=== PATIENT | male | born 1965 | race Caucasian/White ===

== ENCOUNTER → 2017-02-26 | Outpatient (REF) | payer OTHER ==
[~2017-02-26] MED LIST: ASPI1TAB PO; ASPI324T PO; ATOR80TA59 PO; COLA100C5 PO; CORE12.5 PO; LISI10TA4 PO; LORT5TAB PO; NITR3TA SL; NORV5TAB PO; PLAV1TAB2 PO; TYLE325T5 PO; flomax PO
[2017-02-26 12:34] LABS: BASO % 0.5 % (0.0-1.0); EOS # 0.2 10^3/uL (0.0-0.50); EOS % 3.3 % (0.0-3.0); IMMATURE GRANULOCYTE % 0.2 % (0-0); LYMPH # 1.1 10^3/uL (1.5-4.5); LYMPH % 18.6 % (24.0-44.0); MEAN CORPUSCULAR HEMOGLOBIN 27.5 pg (27.0-33.0); MEAN CORPUSCULAR HGB CONC 32.1 g/dl (32.0-36.5); MEAN CORPUSCULAR VOLUME 85.6 fl (80.0-96.0); MONO # 0.6 10^3/uL (0.0-0.8); MONO % 9.7 % (0.0-5.0); NEUTROPHILS # 3.9 10^3/uL (1.8-7.7); NEUTROPHILS % 67.7 % (36.0-66.0); PLATELET COUNT, AUTOMATED 276 10^3/uL (150-450); RED CELL DISTRIBUTION WIDTH 16.2 % (11.5-14.5); WHITE BLOOD COUNT 5.8 10^3/uL (4.0-10.0)
[2017-02-26 12:43] LABS: ALBUMIN 3.8 GM/DL (3.2-5.2); ALBUMIN/GLOBULIN RATIO 1.36 (1.00-1.93); ALKALINE PHOSPHATASE 109 U/L (45-117); ALT/SGPT 30 U/L (12-78); ANION GAP 7 MEQ/L (8-16); AST/SGOT 20 U/L (15-37); BILIRUBIN,TOTAL 0.4 MG/DL (0.2-1.0); BLOOD UREA NITROGEN 14 MG/DL (7-18); CALCIUM LEVEL 8.1 MG/DL (8.5-10.1); CARBON DIOXIDE LEVEL 25 MEQ/L (21-32); CHLORIDE LEVEL 107 MEQ/L (98-107); CHOLESTEROL LEVEL 92 MG/DL (<200); GLOMERULAR FILTRATION RATE > 60.0 (>56); GLUCOSE, FASTING 100 MG/DL (70-105); POTASSIUM SERUM 4.7 MEQ/L (3.5-5.1); SODIUM LEVEL 139 MEQ/L (136-145); TOTAL PROTEIN 6.6 GM/DL (6.4-8.2); TRIGLYCERIDES LEVEL 126 MG/DL (<150)
== END ==
LOC: M LABDRAW1 09:34
PROVIDERS: ATTEND Emergency Medicine
DX: E78.2 Mixed hyperlipidemia (principal); I10 Essential (primary) hypertension; E55.9 Vitamin D deficiency, unspecified

== ENCOUNTER → 2017-04-24 | Outpatient (REF) | payer OTHER | LOC: M LAB REF 18:07 | PROVIDERS: ATTEND Surgery | DX: D17.21 Benign lipomatous neoplasm of skin and subcutaneous tissue of right arm (principal) ==

== ENCOUNTER → 2018-02-26 | Outpatient (REF) | payer OTHER ==
[2018-02-26 12:46] LABS: BASO % 0.5 % (0.0-1.0); EOS # 0.3 10^3/uL (0.0-0.50); EOS % 3.7 % (0.0-3.0); HEMATOCRIT 43.2 % (42.0-52.0); HEMOGLOBIN 14.3 g/dl (13.5-17.5); IMMATURE GRANULOCYTE % 0.4 % (0-3.0); LYMPH # 1.2 10^3/uL (1.5-4.5); LYMPH % 16.4 % (24.0-44.0); MEAN CORPUSCULAR HEMOGLOBIN 31.1 pg (27.0-33.0); MEAN CORPUSCULAR HGB CONC 33.1 g/dl (32.0-36.5); MEAN CORPUSCULAR VOLUME 93.9 fl (80.0-96.0); MONO # 0.6 10^3/uL (0.0-0.8); MONO % 7.4 % (0.0-5.0); NEUTROPHILS # 5.3 10^3/uL (1.8-7.7); NEUTROPHILS % 71.6 % (36.0-66.0); PLATELET COUNT, AUTOMATED 247 10^3/uL (150-450); RED CELL DISTRIBUTION WIDTH 13.5 % (11.5-14.5); WHITE BLOOD COUNT 7.4 10^3/uL (4.0-10.0)
[2018-02-26 13:00] LABS: ALBUMIN 3.7 GM/DL (3.2-5.2); ALBUMIN/GLOBULIN RATIO 1.32 (1.00-1.93); ALKALINE PHOSPHATASE 112 U/L (45-117); ALT/SGPT 37 U/L (12-78); ANION GAP 7 MEQ/L (8-16); AST/SGOT 16 U/L (7-37); BILIRUBIN,TOTAL 0.4 MG/DL (0.2-1.0); BLOOD UREA NITROGEN 13 MG/DL (7-18); CALCIUM LEVEL 8.1 MG/DL (8.5-10.1); CARBON DIOXIDE LEVEL 27 MEQ/L (21-32); CHLORIDE LEVEL 109 MEQ/L (98-107); CHOLESTEROL LEVEL 106 MG/DL (<200); CHOLESTEROL RISK RATIO 3.533 (<5); CREATININE FOR GFR 0.86 MG/DL (0.70-1.30); GLOMERULAR FILTRATION RATE > 60.0 (>56); GLUCOSE, FASTING 99 MG/DL (70-100); HDL CHOLESTEROL 30 MG/DL (>40); LDL CHOLESTEROL 54 MG/DL (<100); NON-HDL-C 76 MG/DL; POTASSIUM SERUM 4.2 MEQ/L (3.5-5.1); SODIUM LEVEL 143 MEQ/L (136-145); TOTAL PROTEIN 6.5 GM/DL (6.4-8.2); TRIGLYCERIDES LEVEL 109 MG/DL (<150)
[2018-02-26 13:05] LABS: TOTAL 25(OH) VITAMIN D 40.2 NG/ML (30.0-100.0)
== END ==
LOC: M LABDRAW1 11:42
DX: I10 Essential (primary) hypertension (principal); E78.2 Mixed hyperlipidemia; E55.9 Vitamin D deficiency, unspecified

== ENCOUNTER → 2018-06-12 | Outpatient (CLI) | payer OTHER ==
[~2018-06-12] MED LIST changes: +NITR0.3S SL; -NITR3TA SL
--- NOTE | 2018-06-12 10:01 | REP ---
Clinical: Lower back pain . Technique: AP, lateral, bilateral oblique, and coned-down views. Findings: Alignment and lordosis is maintained. Mild multilevel degenerative changes include endplate sclerosis with marginal spurring/early osteophyte formation. Hypertrophic facet changes at L5-S1 also appreciated. There is no evidence for acute fracture / compression injury or subluxation. No obvious spondylolysis or spondylolisthesis. Alignment and lordosis maintained. Impression: Mild/early moderate multilevel degenerative changes. Electronically Signed by Sid Raymond MD 06/12/2018 09:52 A
== END ==
LOC: M RAD 09:24
PROVIDERS: ATTEND Family Medicine
DX: M54.5 Low back pain (principal)

== ENCOUNTER 2018-07-17 07:03 | Day surgery (SDC) | payer OTHER ==
[~2018-07-17] VITALS: Ht 160 cm; Wt 78.0 kg
[~2018-07-17 07:03] MED LIST changes: +DRIS50003 PO; +LISI-538 PO; +NS 1,000 ML IV ONE
[2018-07-17] MEDS ORDERED: LIDOCAINE 2% INJ 100 MG/5 ML SDV (FOR ANES.) As Ordered ONE (07:20)
[2018-07-17] MEDS ORDERED: PROPOFOL 200 MG/20 ML VIAL As Ordered ONE ×2 (07:20→08:18)
--- NOTE | 2018-07-17 08:21 | ROOR ---
Patient Name: Vinod Andres Procedure Date: 07/17/2018 8:01 AM Date of : 1965 Age: 53 Room: [facility] Gender: Male Note Status: Finalized Procedure: Colonoscopy Indications: Screening for colorectal malignant neoplasm Providers: DO Simon Loaiza MD: Brenda Christianson MD Requesting Provider: Medicines: Propofol per Anesthesia Complications: No immediate complications. Procedure: Pre-Anesthesia Assessment: - Prior to the procedure, a History and Physical was performed, and patient medications and allergies were reviewed. The patient is competent. The risks and benefits of the procedure and the sedation options and risks were discussed with the patient. All questions were answered and informed consent was obtained. Patient identification and proposed procedure were verified by the physician, the nurse and the dental service technician in the endoscopy suite. Mental Status Examination: normal. Airway Examination: normal oropharyngeal airway and neck mobility. Respiratory Examination: clear to auscultation. CV Examination: normal. Prophylactic Antibiotics: The patient does not require prophylactic antibiotics. Prior Anticoagulants: The patient has taken no previous anticoagulant or antiplatelet agents. ASA Grade Assessment: II - A patient with mild systemic disease. After reviewing the risks and benefits, the patient was deemed in satisfactory condition to undergo the procedure. The anesthesia plan was to use monitored anesthesia care (MAC). Immediately prior to administration of medications, the patient was re-assessed for adequacy to receive sedatives. The heart rate, respiratory rate, oxygen saturations, blood pressure, adequacy of pulmonary ventilation, and response to care were monitored throughout the procedure. The physical status of the patient was re-assessed after the procedure. The Colonoscope was introduced through the anus and advanced to the cecum, identified by appendiceal orifice and ileocecal valve. The colonoscopy was performed without difficulty. The patient tolerated the procedure well. Findings: The perianal exam findings include non-thrombosed internal hemorrhoids and internal hemorrhoids (Grade I). The exam was otherwise without abnormality on direct and retroflexion views. Impression: - Non-thrombosed internal hemorrhoids and internal hemorrhoids (Grade I) found on perianal exam. - The examination was otherwise normal on direct and retroflexion views. - No specimens collected. Recommendation: - Patient has a contact number available for emergencies. The signs and symptoms of potential delayed complications were discussed with the patient. Return to normal activities tomorrow. Written discharge instructions were provided to the patient. - Repeat colonoscopy in 5-10 years for screening purposes. - Return to my office PRN. Davian Suarez DO 07/17/2018 8:20:51 AM This report has been signed electronically. Number of Addenda: 0 Note Initiated On: 07/17/2018 8:01 AM Estimated Blood Loss: Estimated blood loss: none.
[2018-07-17 08:50] VITALS: BP 122/69
== END 2018-07-17 08:52 | disposition home or self-care (01) ==
LOC: M OPP 07:03
PROVIDERS: ATTEND Surgery
DX: K64.0 First degree hemorrhoids (principal); Z12.11 Encounter for screening for malignant neoplasm of colon

== ENCOUNTER 2019-08-13 16:42 | Inpatient (IN) | payer OTHER ==
[~2019-08-13] VITALS: Ht 160 cm; Wt 84.5 kg
[~2019-08-13 16:42] MED LIST changes: -ASPI1TAB PO; +ASPI81TA26 PO; -NS 1,000 ML IV ONE
[2019-08-13 17:17] LABS: BASO # 0.1 10^3/uL (0.0-0.2); BASO % 0.3 % (0.0-1.0); EOS # 0.2 10^3/uL (0.0-0.5); EOS % 1.3 % (0.0-3.0); HEMATOCRIT 49.4 % (42.0-52.0); HEMOGLOBIN 16.6 g/dl (13.5-17.5); LYMPH # 0.5 10^3/uL (1.5-5.0); LYMPH % 3.5 % (24.0-44.0); MEAN CORPUSCULAR HEMOGLOBIN 32.1 pg (27.0-33.0); MEAN CORPUSCULAR HGB CONC 33.6 g/dl (32.0-36.5); MEAN CORPUSCULAR VOLUME 95.6 fl (80.0-96.0); MONO # 0.6 10^3/uL (0.0-0.8); NEUTROPHILS # 13.7 10^3/uL (1.5-8.5); NEUTROPHILS % 90.2 % (36.0-66.0); PLATELET COUNT, AUTOMATED 258 10^3/uL (150-450); RED BLOOD COUNT 5.17 10^6/uL (4.30-6.10); WHITE BLOOD COUNT 15.2 10^3/uL (4.0-10.0)
[2019-08-13 17:29] LABS: INR 1.03; PROTHROMBIN TIME 13.2 SECONDS (11.8-14.0)
[2019-08-13 17:30] LABS: PARTIAL THROMBOPLASTIN TIME 24.9 SECONDS (25.0-38.4)
[2019-08-13 17:51] LABS: ALBUMIN 4.6 GM/DL (3.2-5.2); ALT/SGPT 65 U/L (12-78); BILIRUBIN,DIRECT 0.2 MG/DL (0.0-0.2); BILIRUBIN,TOTAL 0.7 MG/DL (0.2-1.0); BLOOD UREA NITROGEN 18 MG/DL (7-18); CALCIUM LEVEL 9.5 MG/DL (8.5-10.1); CARBON DIOXIDE LEVEL 26 MEQ/L (21-32); CHLORIDE LEVEL 105 MEQ/L (98-107); CK-MB VALUE MASS 2.1 NG/ML (<3.6); CPK CREATINE PHOSPHOKINASE 177 U/L (39-308); CREATININE FOR GFR 1.45 MG/DL (0.70-1.30); GLOMERULAR FILTRATION RATE 54.2 (>56); GLUCOSE, FASTING 131 MG/DL (70-100); LIPASE 119 U/L (73-393); MB/CK RELATIVE INDEX 1.19 (< OR =4); POTASSIUM SERUM 6.1 MEQ/L (3.5-5.1); SODIUM LEVEL 135 MEQ/L (136-145); TOTAL PROTEIN 7.7 GM/DL (6.4-8.2); TROPONIN I < 0.02 NG/ML (< 0.10)
[2019-08-13] MEDS ORDERED: DEXTROSE 50% 50 ML SYRINGE IV STA (18:12)
[2019-08-13] MEDS ORDERED: NS 1,000 ML IV SCH (18:12)
[2019-08-13] MEDS ORDERED: SOD POLYSTYRENE SULFONATE SUSP 15 GM/60 ML UD PO ONE (18:15)
[2019-08-13] MEDS ORDERED: HumuLIN R (REGULAR) INSULIN (NovoLIN R) **100U/ML** PER UNIT IV ONE (18:15)
[2019-08-13] MEDS ORDERED: VITA50005 PO (18:42)
--- NOTE | 2019-08-13 18:54 | REP ---
HISTORY: Chest pain. FINDINGS: The superior mediastinal structures are midline. The cardiac silhouette is unremarkable in size, shape and position. The diaphragmatic surfaces of the lungs are regular and the costophrenic angles are clear. The pulmonary jimenez are clear. The imaged osseous structures are intact. IMPRESSION: There is no acute cardiopulmonary disease. Electronically Signed by Jamey Mcghee DO 08/13/2019 07:34 P
[2019-08-13] MEDS ORDERED: ACETAMINOPHEN TAB 650MG DOSE (2X325MG) PO PRN (19:30)
--- NOTE | 2019-08-13 19:44 | ECGEPIP ---
[facility] - ED Test Date: 2019-08-13 Pat Name: BLESSING LAI Department: Room: - Gender: Male Hat Former: : 1965 Requested By: VIJI Poe Order Number: [id number] Reading MD: Shruthi Garcia Measurements Intervals [place] Rate: 77 P: 23 OK: 159 QRS: 2 QRSD: 84 T: 12 QT: 323 QTc: 367 Interpretive Statements SINUS RHYTHM INDETERMINATE AXIS ANTERIOR MYOCARDIAL INFARCTION, OF INDETERMINATE AGE INFERIOR MYOCARDIAL INFARCTION, OF INDETERMINATE AGE CLINICAL CORRELATION NO PRIOR Electronically Signed on 08-13-2019 19:43:55 EDT by Shruthi Garcia
[2019-08-13] MEDS ORDERED: NITROGLYCERIN 0.3 MG SUBL TAB SL PRN (20:00)
--- NOTE | 2019-08-13 20:17 | HPEPDOC ---
General Date of Admission Aug 13, 2019 at 19:19 Date of Service: Aug 13, 2019 Chief Complaint The patient is a 54-year-old male Who presented to the hospital with complaints of nausea, vomiting and diarrhea History of Present Illness Patient is a 54-year-old male with a PMHx of CAD (s/p MS x 2) s/p stent x 6 (02/2014) and Nephrolithiasis who presented to the ER with complaints of nausea / vomiting / diarrhea that started this afternoon. Patient reported at 1 PM today after lunch he began to experience persistent vomiting, mostly of the food that he had eaten without any evidence of blood. Reported 4-5 episodes of vomiting. Patient also had associated diarrhea that he described as watery noted at least 5-6 bowel movements. . She denied any abdominal discomfort. Denies any recent fevers or chills. Patient does report history of food poisoning in 1999. . Of note, patient does report that his has a history of C. difficile colitis in March 2019 and she had received a fecal transit with Dr. Kumar. At this moment. Patient denies any chest pain, shortness of breath, cough, palpitations, or urinary discomfort. Patient reports prior to all this, his appetite was fairly normal and his weight consistent between 166 and 172. Home Medications Scheduled Aspirin (Aspirin EC) 81 Mg Tab, 81 MG PO DAILY, (Reported) Atorvastatin Calcium (Atorvastatin Calcium) 80 Mg Tab, 80 MG PO QHS, (Reported) Carvedilol (Coreg) 12.5 Mg Tab, 12.5 MG PO BID, (Reported) Clopidogrel Bisulfate (Plavix) 75 Mg Tab, 75 MG PO DAILY, (Reported) Ergocalciferol (Vitamin D2) (Vitamin D2) 50,000 Units Cap, 50,000 UNIT PO QM ONTH, (Reported) Lisinopril (Lisinopril) 20 Mg Tab, 20 MG PO DAILY, (Reported) Scheduled PRN Nitroglycerin (Nitrostat) 0.3 Mg Subl, 0.3 MG SL NITRO PRN for CHEST PAIN, (Reported) Allergies Coded Allergies: oxycodone (Verified Allergy, Unknown, NON-SPECIFIC PERCOCET ALLERGY REPORTED, 08/13/19) Past Medical History Medical History CAD (s/p MS x 2) s/p stent x 6 (02/2014) and Nephrolithiasis Surgical History Right wrist surgery Lithotripsy Right arm abscess incision and drainage Family History - Mother with a history of MS - Father with a history of DM and kidney stones Social History - Denies the use of alcohol or illicit drugs; patient was that he quit smoking in 2004, but was a smoker of 20 years at less than one PPD - Denies recent travel or sick contacts - Lives with - Occupation; patient reports that he used to work in the [employer] now. He works at [employer] in the [employer] Review of Systems Other systems 10 point review of systems complete, all negative otherwise stated in HPI Vital Signs - Vitals: BP 119/67, HR 80, RR 15, Sat 96%RA, Temp 97.0F - General: Lying in bed and appears to be resting comfortably, Speaking in full sentences, AAOx3 - HEENT: NC, AT, PERRLA, EOMI - CVS: RRR, +S1S2 - Lungs: Fair air entry bilaterally, No appreciable wheezing / rales / rhonchi - Abdomen: Soft, Non-distended, Non-tender - Extremities: No lower extremity edema, No calf tenderness - Neuro: No focal motor or sensory deficit - Skin: No visible rashes Laboratory Data Labs 24H Laboratory Tests 2 08/13/19 17:00: Immature Granulocyte % (Auto) 0.7, Neutrophils (%) (Auto) 90.2H, Lymphocytes (%) (Auto) 3.5L, Monocytes (%) (Auto) 4.0, Eosinophils (%) (Auto) 1.3, Basophils (%) (Auto) 0.3, Neutrophils # (Auto) 13.7H, Lymphocytes # (Auto) 0.5L, Monocytes # (Auto) 0.6, Eosinophils # (Auto) 0.2, Basophils # (Auto) 0.1, Nucleated Red Blood Cells % (auto) 0.0, Prothrombin Time 13.2, Prothromb Time International Ratio 1.03, Activated Partial Thromboplast Time 24.9L, Anion Gap 4L, Glomerular Filtration Rate 54.2L, Calcium Level 9.5, Total Bilirubin 0.7, Direct Bilirubin 0.2, Aspartate Amino Transf (AST/SGOT) 39H, Alanine Aminotransferase (ALT/SGPT) 65, Alkaline Phosphatase 103, Total Creatine Kinase 177, Creatine Kinase MB 2.1, Creatine Kinase MB Relative Index 1.19, Troponin I < 0.02, Total Protein 7.7, Albumin 4.6, Albumin/Globulin Ratio 1.48, Lipase 119, Thyroid Stimulating Hormone (TSH) 2.040, Free Thyroxine 1.10 08/13/19 19:35: 08/13/19 19:36: CBC/BMP Laboratory Tests 08/13/19 17:00 Plan / VTE VTE Prophylaxis Ordered?: Yes Plan Plan Nausea, vomiting and diarrhea - possibly 2/2 bacterial etiology, possibly C. difficile colitis - Patient presented with significant nausea, vomiting and diarrhea that started today - Patient reports that his has a history of C. difficile colitis that was treated with fecal transplant March 2019 - Patient was slightly hypotensive but fluid responsive in the emergency room - Remains afebrile - Leukocytosis with neutrophil predominance - CXR 08/12: There is no acute cardiopulmonary disease. - Will check GI panel / Blood cultures - Will continue with contact precautions until GI panel is available - Will hold off on starting that, until GI panel is available Acute kidney injury - likely 2/2 prerenal etiology 2/2 persistent nausea, vomiting, diarrhea - Creatinine baseline of 0.8 - Creatinine on admission of 1.45 - Will check urinalysis and urine electrolytes - Will start IV fluid hydration Hyperkalemia - EKG noted - Patient has been given sodium polystyrene in the emergency room - Will continue with telemetry monitoring Hyponatremia - likely 2/2 hypotonic hypovolemia etiology - Will check osmolality of urine and serum, will check urine lites - Thyroid function noted - c/w IV fluid hydration CAD (s/p MS x 2) - s/p stent x 6 (02/2014) - Will continue with Aspirin, Plavix, Carvedilol, and nitroglycerin glycerin PRN Nephrolithiasis - Patient does not have any urinary symptoms at this moment - Patient has reported receiving lithotripsy past - Will check UA DVT prophylaxis - Will start Heparin SQ TU SINGH MD Aug 13, 2019 20:17
[2019-08-13 20:30] VITALS: BP 140/86
[2019-08-13] MEDS: ATORVASTATIN 20 MG TAB PO SCH (20:41)
[2019-08-13] MEDS: HEPARIN SOD (PORCINE) 5000 UNITS/ML VIAL (J1644 PER 1000UNITS) SC SCH (20:42)
[2019-08-13] MEDS: CARVedilol 12.5 MG TAB PO SCH (20:43)
[2019-08-13] MEDS: NS 1,000 ML IV SCH (20:43)
[2019-08-13 22:00] VITALS: BP 135/72
[2019-08-14] MEDS ORDERED: LORATADINE 10 MG TAB PO ONE
[2019-08-14] MEDS ORDERED: SODIUM CHLORIDE NASAL 0.65% SPRAY BTL (OCEAN) PRN
[2019-08-14] MEDS: NS 1,000 ML IV SCH ×2 (00:17→04:37)
[2019-08-14 00:57] LABS: OSMOLALITY URINE 729 MOSM/KG (500-800)
[2019-08-14 01:12] LABS: SODIUM,RANDOM URINE 40 MEQ/L
[2019-08-14] MEDS: HEPARIN SOD (PORCINE) 5000 UNITS/ML VIAL (J1644 PER 1000UNITS) SC SCH ×3 (04:37→20:35)
[2019-08-14 05:45] LABS: BASO % 0.3 % (0.0-1.0); EOS # 0.1 10^3/uL (0.0-0.5); EOS % 1.1 % (0.0-3.0); HEMATOCRIT 41.6 % (42.0-52.0); LYMPH # 0.3 10^3/uL (1.5-5.0); LYMPH % 4.2 % (24.0-44.0); MEAN CORPUSCULAR HEMOGLOBIN 32.3 pg (27.0-33.0); MEAN CORPUSCULAR HGB CONC 33.9 g/dl (32.0-36.5); MEAN CORPUSCULAR VOLUME 95.4 fl (80.0-96.0); MONO # 0.4 10^3/uL (0.0-0.8); MONO % 5.2 % (0.0-5.0); NEUTROPHILS # 6.7 10^3/uL (1.5-8.5); NEUTROPHILS % 88.8 % (36.0-66.0); PLATELET COUNT, AUTOMATED 187 10^3/uL (150-450); RED BLOOD COUNT 4.36 10^6/uL (4.30-6.10); WHITE BLOOD COUNT 7.5 10^3/uL (4.0-10.0)
[2019-08-14 05:53] LABS: HEMOGLOBIN 14.1 g/dl (13.5-17.5)
[2019-08-14 05:59] LABS: BLOOD UREA NITROGEN 20 MG/DL (7-18); CALCIUM LEVEL 7.9 MG/DL (8.5-10.1); CARBON DIOXIDE LEVEL 24 MEQ/L (21-32); CHLORIDE LEVEL 109 MEQ/L (98-107); CREATININE FOR GFR 0.88 MG/DL (0.70-1.30); GLOMERULAR FILTRATION RATE > 60.0 (>56); GLUCOSE, FASTING 98 MG/DL (70-100); MAGNESIUM LEVEL 1.8 MG/DL (1.8-2.4); POTASSIUM SERUM 4.1 MEQ/L (3.5-5.1); SODIUM LEVEL 141 MEQ/L (136-145)
[2019-08-14 06:00] VITALS: BP 138/84
[2019-08-14] MEDS: CLOPIDOGREL 75 MG TAB PO SCH (09:12)
[2019-08-14] MEDS: ASPIRIN 81 MG ENTERIC TAB PO SCH (09:12)
[2019-08-14] MEDS: CARVedilol 12.5 MG TAB PO SCH ×2 (09:14→20:36)
[2019-08-14] MEDS: FLUTICASONE PROP 0.05% NASAL SPRAY 16 GM (FLONASE) NARES SCH ×2 (10:29→20:36)
--- NOTE | 2019-08-14 11:06 | IPNPDOC ---
Date Seen The patient was seen on 08/14/19. Progress Note SUBJECTIVE: Patient reports he is feeling better this morning. His chest pain has resolved. He is still having diarrhea. Otherwise he feels well. He states he has some nasal congestion but otherwise he notes improvement in his symptoms from when he was admitted. OBJECTIVE VITAL SIGNS: Please see below. GENERAL APPEARANCE: Laying in bed, appears stated age, no acute distress, calm, cooperative HEENT: EOMI, PERRLA, neck is supple with no thyromegaly or lymphadenopathy RESPIRATORY: Lungs are clear to auscultation bilaterally with no adventitious breath sounds appreciated CARDIOVASCULAR: no JVD, RRR, no murmurs/rubs/gallops ABDOMEN: hyperactive bowel sounds. Soft, nontender to palpation in all four quadrants, no masses/organomegaly EXTREMITIES: no clubbing, cyanosis or edema noted NEUROLOGICAL: No obvious focal deficits PSYCHIATRIC: normal mood/affect Skin: No rashes or ulcers. LN: No significant cervical or inguinal lymphadenopathy LABORATORY DATA, IMAGING STUDIES, MICROBIOLOGY: Please see below. DVT prophylaxis ordered?: [facility] ASSESSMENT AND PLAN: This is a 54-YO M with history of CAD and 6 stents (most recent in 2013) who presented with nausea/vomiting and chest pain found to have Norovirus, GLENDA and hyperkalemia. This morning, hyperkalemia and GLENDA have resolved and diarrhea has improved. PROBLEMS: 1. Norovirus on GI panel: WBC initially 15.2, down to 7.5 -Continue IVF NS 50cc/hr 2. GLENDA: Cr found to be 1.45 on admission -Resolved. Cr 0.88 today 3. Hyperkalemia without EKG changes: -Resolved. S/p Kayexalate in ED 4. CAD: initial chest pain has resolved. Most likely 2/2 -Continue ASA, Coreg, Plavix DISPOSITION: Continue supportive care. Will recheck electrolytes tomorrow morning. Possible dc home in 24h. Attending Addendum: I discussed the care and management of this patient with resident in detail and agree with the plan above. VS, I&O, 24H, Fishbone Vital Signs/I&O Vital Signs Date Time Temp Pulse Resp B/P (MAP) Pulse Ox O2 Delivery O2 Flow Rate FiO2 08/14/19 09:14 87 147/85 08/14/19 06:00 97.7 18 98 Room Air I&O- Last 24 Hours up to 6 AM 08/14/19 06:00 Intake Total 1155 ml Output Total 500 ml Balance 655 ml Laboratory Data 24H LABS Laboratory Tests 2 08/13/19 17:00: Immature Granulocyte % (Auto) 0.7, Neutrophils (%) (Auto) 90.2H, Lymphocytes (%) (Auto) 3.5L, Monocytes (%) (Auto) 4.0, Eosinophils (%) (Auto) 1.3, Basophils (%) (Auto) 0.3, Neutrophils # (Auto) 13.7H, Lymphocytes # (Auto) 0.5L, Monocytes # (Auto) 0.6, Eosinophils # (Auto) 0.2, Basophils # (Auto) 0.1, Nucleated Red Blood Cells % (auto) 0.0, Prothrombin Time 13.2, Prothromb Time International Ratio 1.03, Activated Partial Thromboplast Time 24.9L, Anion Gap 4L, Glomerular Filtration Rate 54.2L, Calcium Level 9.5, Total Bilirubin 0.7, Direct Bilirubin 0.2, Aspartate Amino Transf (AST/SGOT) 39H, Alanine Aminotransferase (ALT/SGPT) 65, Alkaline Phosphatase 103, Total Creatine Kinase 177, Creatine Kinase MB 2.1, Creatine Kinase MB Relative Index 1.19, Troponin I < 0.02, Total Protein 7.7, Albumin 4.6, Albumin/Globulin Ratio 1.48, Lipase 119, Thyroid Stimulating Hormone (TSH) 2.040, Free Thyroxine 1.10 08/13/19 19:35: Osmolality 297H 08/13/19 19:36: 08/14/19 00:28: Urine Color CAROLINE, Urine Appearance HAZY, Urine pH 5.0, Urine Specific [place] 1.026, Urine Protein 1+H, Urine Glucose (UA) 2+H, Urine Ketones NEGATIVE, Urine Blood NEGATIVE, Urine Nitrite NEGATIVE, Urine Bilirubin NEGATIVE, Urine Urobilinogen 0.2, Urine Leukocyte Esterase NEGATIVE, Urine WBC (Auto) 2, Urine RBC (Auto) 6H, Urine Hyaline Casts (Auto) 4, Urine Bacteria (Auto) NEGATIVE, Urine Squamous Epithelial Cells 0, Urine Mucus (Auto) SMALL, Urine Sperm (Auto) , Urine Random Osmolality 729, Urine Random Creatinine 279.0, Urine Random Sodium 40 08/14/19 05:20: Immature Granulocyte % (Auto) 0.4, Neutrophils (%) (Auto) 88.8H, Lymphocytes (%) (Auto) 4.2L, Monocytes (%) (Auto) 5.2H, Eosinophils (%) (Auto) 1.1, Basophils (%) (Auto) 0.3, Neutrophils # (Auto) 6.7, Lymphocytes # (Auto) 0.3L, Monocytes # (Auto) 0.4, Eosinophils # (Auto) 0.1, Basophils # (Auto) 0.0, Nucleated Red Blood Cells % (auto) 0.0, Anion Gap 8, Glomerular Filtration Rate > 60.0, Calcium Level 7.9#L, Magnesium Level 1.8 CBC/BMP Laboratory Tests 08/13/19 17:00 08/14/19 05:20 Microbiology Microbiology 08/14/19 Gastrointestinal Tract Panel (PCR) - Final, Complete Norovirus 08/13/19 Blood Culture, Received Pending 08/13/19 Blood Culture, Received Pending GME ATTESTATION GME ATTESTATION My faculty preceptor for this patient encounter was physically present during the encounter and was fully available. All aspects of the patient interview, examination, medical decision making process, and medical care plan development were reviewed and approved by the faculty preceptor. The faculty preceptor is aw are and concurs with the plan as stated in the body of this note and will attest to such by his/her cosignature. TOBY WOODS MD Aug 14, 2019 10:37 JOHN EDWARDS MD Aug 16, 2019 20:27
[2019-08-14 14:00] VITALS: BP 140/83
[2019-08-14] MEDS: ATORVASTATIN 20 MG TAB PO SCH (20:35)
[2019-08-14 22:00] VITALS: BP 125/82
[2019-08-15] MEDS: NS 1,000 ML IV SCH (02:50)
[2019-08-15] MEDS: HEPARIN SOD (PORCINE) 5000 UNITS/ML VIAL (J1644 PER 1000UNITS) SC SCH (02:50)
[2019-08-15 05:18] LABS: BASO % 0.4 % (0.0-1.0); EOS # 0.2 10^3/uL (0.0-0.5); EOS % 3.8 % (0.0-3.0); HEMATOCRIT 39.4 % (42.0-52.0); HEMOGLOBIN 13.4 g/dl (13.5-17.5); LYMPH # 0.9 10^3/uL (1.5-5.0); LYMPH % 17.2 % (24.0-44.0); MEAN CORPUSCULAR HEMOGLOBIN 32.5 pg (27.0-33.0); MEAN CORPUSCULAR VOLUME 95.6 fl (80.0-96.0); MONO # 0.5 10^3/uL (0.0-0.8); MONO % 9.3 % (0.0-5.0); NEUTROPHILS # 3.4 10^3/uL (1.5-8.5); NEUTROPHILS % 68.9 % (36.0-66.0); PLATELET COUNT, AUTOMATED 183 10^3/uL (150-450); RED BLOOD COUNT 4.12 10^6/uL (4.30-6.10); WHITE BLOOD COUNT 4.9 10^3/uL (4.0-10.0)
[2019-08-15 05:51] LABS: BLOOD UREA NITROGEN 9 MG/DL (7-18); CALCIUM LEVEL 8.1 MG/DL (8.5-10.1); CARBON DIOXIDE LEVEL 25 MEQ/L (21-32); CHLORIDE LEVEL 113 MEQ/L (98-107); CREATININE FOR GFR 0.72 MG/DL (0.70-1.30); GLOMERULAR FILTRATION RATE > 60.0 (>56); GLUCOSE, FASTING 87 MG/DL (70-100); POTASSIUM SERUM 3.8 MEQ/L (3.5-5.1); SODIUM LEVEL 141 MEQ/L (136-145)
[2019-08-15 06:00] VITALS: BP 128/81
[2019-08-15 09:07] VITALS: BP 128/81
[2019-08-15] MEDS: FLUTICASONE PROP 0.05% NASAL SPRAY 16 GM (FLONASE) NARES SCH (09:07)
[2019-08-15] MEDS: ASPIRIN 81 MG ENTERIC TAB PO SCH (09:07)
[2019-08-15] MEDS: CLOPIDOGREL 75 MG TAB PO SCH (09:07)
[2019-08-15] MEDS: CARVedilol 12.5 MG TAB PO SCH (09:07)
[2019-08-15] MEDS ORDERED: FLUTISP NARES (09:16)
--- NOTE | 2019-08-15 10:47 | DS.PDOC ---
Discharge Summary General Date of Admission Aug 13, 2019 at 19:19 Date of Discharge 08/15/2019 Primary Care Physician: Brenda Christianson MD Attending Physician: JOHN EDWARDS MD Discharge Summary PROCEDURES PERFORMED DURING STAY: [None]. ADMITTING DIAGNOSES: 1. Nausea, vomiting, chest pain DISCHARGE DIAGNOSES: 1. Norovirus infection COMPLICATIONS/CHIEF COMPLAINT: Acute Kidney Injury,Diarrhea,Hyperkalemia. HISTORY OF PRESENT ILLNESS: Patient is a 54-year-old male with a PMHx of CAD (s/p [place] x 2) s/p stent x 6 (02/2014) and Nephrolithiasis who presented to the ER with complaints of nausea / vomiting / diarrhea that started this afternoon. Patient reported at 1 PM today after lunch he began to experience persistent vomiting, mostly of the food that he had eaten without any evidence of blood. Reported 4-5 episodes of vomiting. Patient also had associated diarrhea that he described as watery noted at least 5-6 bowel movements. . She denied any abdominal discomfort. Denies any recent fevers or chills. Patient does report history of food poisoning in 1999. . Of note, patient does report that his has a history of C. difficile colitis in March 2019 and she had received a fecal transit with Dr. Kumar. At this moment. Patient denies any chest pain, shortness of breath, cough, palpitations, or urinary discomfort. Patient reports prior to all this, his appetite was fairly normal and his weight consistent between 166 and 172. HOSPITAL COURSE: The patient was admitted with symptoms of chest pain, nausea, vomiting and diarrhea. Cardiac workup, including EKG and cardiac enzymes, were found to be negative for any ischemia. A GI panel was drawn and was found to be positive for Norovirus. In addition, his electrolyte panel was significant for hyperkalemia at 6.1 and GLENDA with BUN/Cr found to be 18/1.45. He was started on symptomatic treatment and fluid resuscitation while his home medications were resumed. On HD #2 the patient's electrolyte abnormalities resolved and renal function returned to baseline. He was discharged home on 08/15/2019 in a stable state. DISCHARGE MEDICATIONS: Please see below. ALLERGIES: Please see below. PHYSICAL EXAMINATION ON DISCHARGE: VITAL SIGNS: Please see below. GENERAL APPEARANCE: Laying in bed, appears stated age, no acute distress, calm, cooperative HEENT: EOMI, PERRLA, neck is supple with no thyromegaly or lymphadenopathy RESPIRATORY: Lungs are clear to auscultation bilaterally with no adventitious breath sounds appreciated CARDIOVASCULAR: no JVD, RRR, no murmurs/rubs/gallops ABDOMEN: hyperactive bowel sounds. Soft, nontender to palpation in all four quadrants, no masses/organomegaly EXTREMITIES: no clubbing, cyanosis or edema noted NEUROLOGICAL: No obvious focal deficits PSYCHIATRIC: normal mood/affect Skin: No rashes or ulcers. LN: No significant cervical or inguinal lymphadenopathy LABORATORY DATA: Please see below. IMAGING: CXR: FINDINGS: The superior mediastinal structures are midline. The cardiac silhouette is unremarkable in size, shape and position. The diaphragmatic surfaces of the lungs are regular and the costophrenic angles are clear. The pulmonary jimenez are clear. The imaged osseous structures are intact. IMPRESSION: There is no acute cardiopulmonary disease. PROGNOSIS: fair ACTIVITY: [As tolerated]. DIET: As tolerated DISCHARGE PLAN: home DISPOSITION: . DISCHARGE INSTRUCTIONS: 1. continue symptomatic treatment with aggressive fluid hydration ITEMS TO FOLLOWUP ON ON OUTPATIENT: 1. none DISCHARGE CONDITION: [Stable]. TIME SPENT ON DISCHARGE: Greater than 35 minutes. Attending Addendum: I discussed the care and management of this patient with resident in detail and agree with the plan above. Vital Signs/I&Os Vital Signs Date Time Temp Pulse Resp B/P (MAP) Pulse Ox O2 Delivery O2 Flow Rate FiO2 08/15/19 09:07 79 128/81 08/15/19 06:00 96.6 18 96 Room Air I&O- Last 24 Hours up to 6 AM 08/15/19 06:00 Intake Total 4755 ml Output Total 250 ml Balance 4505 ml Laboratory Data Labs 24H Laboratory Tests 2 08/15/19 04:38: Immature Granulocyte % (Auto) 0.4, Neutrophils (%) (Auto) 68.9H, Lymphocytes (%) (Auto) 17.2L, Monocytes (%) (Auto) 9.3H, Eosinophils (%) (Auto) 3.8H, Basophils (%) (Auto) 0.4, Neutrophils # (Auto) 3.4, Lymphocytes # (Auto) 0.9L, Monocytes # (Auto) 0.5, Eosinophils # (Auto) 0.2, Basophils # (Auto) 0.0, Nucleated Red Blood Cells % (auto) 0.0, Anion Gap 3L, Glomerular Filtration Rate > 60.0, Calcium Level 8.1L, Magnesium Level 2.0 CBC/BMP Laboratory Tests 08/15/19 04:38 Microbiology Microbiology 08/14/19 Gastrointestinal Tract Panel (PCR) - Final, Complete Norovirus 08/13/19 Blood Culture - Preliminary, Resulted No growth after 24 hours . All specim... 08/13/19 Blood Culture - Preliminary, Resulted No growth after 24 hours . All specim... Discharge Medications Scheduled Aspirin (Aspirin EC) 81 Mg Tab, 81 MG PO DAILY, (Reported) Atorvastatin Calcium (Atorvastatin Calcium) 80 Mg Tab, 80 MG PO QHS, (Reported) Carvedilol (Coreg) 12.5 Mg Tab, 12.5 MG PO BID, (Reported) Clopidogrel Bisulfate (Plavix) 75 Mg Tab, 75 MG PO DAILY, (Reported) Ergocalciferol (Vitamin D2) (Vitamin D2) 50,000 Units Cap, 50,000 UNIT PO QMONTH, (Reported) Fluticasone Propionate (Fluticasone Propionate) 16 Gm Tie Siding.susp, 1 SPRAY NARES BID Lisinopril (Lisinopril) 20 Mg Tab, 20 MG PO DAILY, (Reported) Scheduled PRN Nitroglycerin (Nitrostat) 0.3 Mg Subl, 0.3 MG SL NITRO PRN for CHEST PAIN, (Reported) Allergies Coded Allergies: oxycodone (Verified Allergy, Unknown, NON-SPECIFIC PERCOCET ALLERGY REPORTED, 08/13/19) GME ATTESTATION GME ATTESTATION My faculty preceptor for this patient encounter was physically present during the encounter and was fully available. All aspects of the patient interview, examination, medical decision making process, and medical care plan development were reviewed and approved by the faculty preceptor. The faculty preceptor is aware and concurs with the plan as stated in the body of this note and will attest to such by his/her cosignature. TOBY WOODS MD Aug 15, 2019 10:47 JOHN EDWARDS MD Aug 16, 2019 20:29
== END 2019-08-15 11:05 | disposition home or self-care (01) | DRG 392 ==
LOC: M ED 16:42 → EDBD 16:42 → M ED INP 19:19 → ENRESERVTM 19:38 → ENRESERVDT 19:38 → M MSPAV 20:30
PROVIDERS: ADMIT Internal Medicine; ATTEND Internal Medicine
DX: A08.11 Acute gastroenteropathy due to Norwalk agent (principal); N17.9 Acute kidney failure, unspecified; E87.1 Hypo-osmolality and hyponatremia; I25.10 Atherosclerotic heart disease of native coronary artery without angina pectoris; I25.2 Old myocardial infarction; Z95.2 Presence of prosthetic heart valve; Z79.82 Long term (current) use of aspirin; Z79.899 Other long term (current) drug therapy; Z88.5 Allergy status to narcotic agent; E87.5 Hyperkalemia

== ENCOUNTER 2022-02-04 19:34 | Emergency (ER) | payer OTHER ==
[~2022-02-04] VITALS: Ht 160 cm; Wt 74.5 kg
[~2022-02-04 19:34] MED LIST changes: +ERGO500029 PO; +FLUTISP NARES; -LISI-538 PO; +LISI10TA22 PO; -LISI10TA4 PO; +LISI20TA33 PO
[2022-02-04] MEDS ORDERED: NAPR-837 PO (21:50)
[2022-02-04 21:58] VITALS: BP 136/70
[2022-02-04] MEDS ORDERED: NAPROXEN 250 MG TAB PO ONE (23:00)
== END 2022-02-04 22:05 | disposition home or self-care (01) ==
LOC: M ED 19:34
DX: S93.602A Unspecified sprain of left foot, initial encounter (principal); I25.2 Old myocardial infarction; I10 Essential (primary) hypertension; E78.5 Hyperlipidemia, unspecified; Z86.79 Personal history of other diseases of the circulatory system; Z88.5 Allergy status to narcotic agent; Z79.82 Long term (current) use of aspirin; Z79.811 Long term (current) use of aromatase inhibitors; Z79.899 Other long term (current) drug therapy; Y92.9 Unspecified place or not applicable; Y93.9 Activity, unspecified; Y99.9 Unspecified external cause status

== ENCOUNTER → 2022-03-09 | Outpatient (CLI) | payer OTHER ==
[~2022-03-09] MED LIST changes: +NAPR-837 PO
[2022-03-09 15:37] LABS: ALBUMIN 3.7 GM/DL (3.2-5.2); ALT/SGPT 34 U/L (12-78); BILIRUBIN,TOTAL 0.5 MG/DL (0.2-1.0); BLOOD UREA NITROGEN 14 MG/DL (7-18); CALCIUM LEVEL 8.9 MG/DL (8.5-10.1); CARBON DIOXIDE LEVEL 27 MEQ/L (21-32); CHLORIDE LEVEL 105 MEQ/L (98-107); CHOLESTEROL LEVEL 112 MG/DL (<200); CHOLESTEROL RISK RATIO 4.148 (<5); GLOMERULAR FILTRATION RATE > 60.0 (>56); GLUCOSE, FASTING 95 MG/DL (70-100); HDL CHOLESTEROL 27 MG/DL (>40); LDL CHOLESTEROL 47 MG/DL (<100); NON-HDL-C 85 MG/DL; POTASSIUM SERUM 4.3 MEQ/L (3.5-5.1); SODIUM LEVEL 137 MEQ/L (136-145); TOTAL PROTEIN 6.6 GM/DL (6.4-8.2); TRIGLYCERIDES LEVEL 190 MG/DL (<150)
== END ==
LOC: M LABDRWAD 09:46
PROVIDERS: ATTEND Nurse Practitioner Family
DX: E78.2 Mixed hyperlipidemia (principal); I10 Essential (primary) hypertension; E55.9 Vitamin D deficiency, unspecified

== ENCOUNTER 2024-01-15 04:49 | Emergency (ER) | payer OTHER ==
[~2024-01-15 04:49] MED LIST changes: +CLOP75TA99 PO; -PLAV1TAB2 PO
[2024-01-15 05:28] LABS: BASO % 0.4 % (0.0-1.0); EOS # 0.2 10^3/uL (0.0-0.5); HEMOGLOBIN 13.6 g/dl (13.5-17.5); LYMPH # 0.9 10^3/uL (1.5-5.0); LYMPH % 16.9 % (24.0-44.0); MEAN CORPUSCULAR VOLUME 97.1 fl (80.0-96.0); MONO # 0.5 10^3/uL (0.0-0.8); MONO % 9.3 % (2.0-8.0); NEUTROPHILS # 3.5 10^3/uL (1.5-8.5); NEUTROPHILS % 70.2 % (36.0-66.0); PLATELET COUNT, AUTOMATED 229 10^3/uL (150-450); RED BLOOD COUNT 4.12 10^6/uL (4.30-6.10)
[2024-01-15 05:50] LABS: INR 1.04; PARTIAL THROMBOPLASTIN TIME 27.1 SECONDS (24.8-34.2); PROTHROMBIN TIME 13.3 SECONDS (12.5-14.5)
[2024-01-15 05:55] LABS: CK-MB VALUE MASS < 1.0 NG/ML (<3.6)
[2024-01-15 05:57] LABS: BLOOD UREA NITROGEN 20 MG/DL (9-23); CALCIUM LEVEL 9.3 MG/DL (8.5-10.1); CARBON DIOXIDE LEVEL 28 MMOL/L (20-31); CHLORIDE LEVEL 112 MMOL/L (98-107); CPK CREATINE PHOSPHOKINASE 123 U/L (46-171); CREATININE FOR GFR 0.89 MG/DL (0.70-1.30); GLOMERULAR FILTRATION RATE > 60.0 (>56); GLUCOSE, FASTING 98 MG/DL (60-100); MB/CK RELATIVE INDEX 0.81 (< OR =4); POTASSIUM SERUM 4.4 MMOL/L (3.5-5.1); SODIUM LEVEL 142 MMOL/L (136-145)
[2024-01-15] MEDS ORDERED: ISOVUE-370 76% 100ML VIAL As Ordered ONE (08:18)
[2024-01-15] MEDS ORDERED: NITR0.4S14 SL (09:36)
[2024-01-15] MEDS ORDERED: HOME MED LIST COMPLETE! XX SCH ×2 (09:40)
[2024-01-15 10:15] VITALS: BP 152/81; TEMP 97.5; O2SAT 99
== END 2024-01-15 10:30 | disposition home or self-care (01) ==
LOC: EDBD 04:49 → M ED 04:49
DX: R07.9 Chest pain, unspecified (principal); R91.1 Solitary pulmonary nodule; R51.9 Headache, unspecified; F10.10 Alcohol abuse, uncomplicated; Z87.891 Personal history of nicotine dependence; Z86.79 Personal history of other diseases of the circulatory system; Z88.5 Allergy status to narcotic agent; Z79.82 Long term (current) use of aspirin; Z79.02 Long term (current) use of antithrombotics/antiplatelets; Z79.811 Long term (current) use of aromatase inhibitors; Z79.899 Other long term (current) drug therapy
CPT/HCPCS: 36415; 71045; 71275; 80047; 80048; 82550; 82553; 84484; 85025; 85610; 85730; 93005; 94760; 99285; Q9967

== ENCOUNTER → 2025-01-27 | Outpatient (CLI) | payer OTHER ==
[~2025-01-27] MED LIST changes: +NITR0.4S14 SL
== END ==
LOC: M PLAIMG 07:28
PROVIDERS: ATTEND Nurse Practitioner Family
DX: R91.1 Solitary pulmonary nodule (principal)

== ENCOUNTER → 2025-02-13 | Outpatient (CLI) | payer OTHER ==
[2025-02-13 12:13] LABS: ALT/SGPT 32 U/L (7.0-40); AST/SGOT 20 U/L (<34); CALCIUM LEVEL 8.6 MG/DL (8.5-10.1); CARBON DIOXIDE LEVEL 27 MMOL/L (20-31); CHLORIDE LEVEL 107 MMOL/L (98-107); CHOLESTEROL LEVEL 110 MG/DL (<200); CHOLESTEROL RISK RATIO 3.84 (<5); CREATININE FOR GFR 0.89 MG/DL (0.70-1.30); GLOMERULAR FILTRATION RATE > 90.0 (>56); LDL CHOLESTEROL 55.2 MG/DL (<100); NON-HDL-C 81.4 MG/DL; POTASSIUM SERUM 4.1 MMOL/L (3.5-5.1); SODIUM LEVEL 139 MMOL/L (136-145); TRIGLYCERIDES LEVEL 131 MG/DL (<150)
== END ==
LOC: M LAB 10:44
PROVIDERS: ATTEND Nurse Practitioner Family
DX: E78.5 Hyperlipidemia, unspecified (principal)